=== PATIENT | male | born 1940 | race Caucasian/White ===

== ENCOUNTER 2017-08-08 03:14 | Inpatient (IN) | payer BC ==
[~2017-08-08] VITALS: Ht 185.4 cm; Wt 100.5 kg
--- NOTE | ~2017-08-08 | CN ---
Consultation Report [address] [place]. [address] NAME: KEISHA HURLEY : 44 STATUS : ADM Warner PAT#: [id number] AGE: 77 ADM/REG DATE : 08/08/17 MR#: [id number] REPORT SERV DATE: 08/09/17 DICTATED BY: PRESTON SIEGEL DATE: 08/09/17 REPORT STATUS : Draft TRANSCRIBED BY: MODL DATE: 08/09/17 GI CONSULTATION. DATE OF CONSULTATION: 08/08/2017 REASON FOR CONSULTATION: Abdominal pain, nausea, and vomiting. HISTORY OF PRESENT ILLNESS: Mr. Hurley is a 77-year-old white male with a history of coronary artery disease, hypertension, dyslipidemia, and diabetes, also had a history of peptic ulcer disease in the past, many years ago is seen by Dr. Lilly, who has since retired. He presents to [facility] with worsening nausea, vomiting, abdominal pain, which has been ongoing over the past three months, but particularly worse since over the weekend when he was admitted. He has had emesis of food. No coffee-ground or hematemesis. No melena. No bright red blood per rectum. His liver enzymes and lipase have been normal. White count mildly elevated at 11.8. CT scan showed no bowel wall thickening or stranding. No diverticulitis or appendicitis. PAST MEDICAL HISTORY: 1. Coronary artery disease status post PCI x2. 2. Hypertension. 3. Dyslipidemia. 4. Diabetes. 5. Peptic ulcer disease. PAST SURGICAL HISTORY: 1. Stent placement in coronary arteries. 2. Hemorrhoidectomy. 3. Hernia surgery. FAMILY HISTORY: Cancer. MEDICATIONS: Reviewed. ALLERGIES: REVIEWED. SOCIAL HISTORY: Former smoker, quit over 20 years ago. No alcohol or drug use. PHYSICAL EXAMINATION: VITAL SIGNS: The patient is afebrile. Vital signs are stable. GENERAL: The patient is awake, alert, and oriented x3. Well developed, well nourished, in no acute distress. HEENT: Atraumatic and normocephalic. Anicteric. Mucous membranes are moist. CARDIAC: S1-S2. CHEST: Clear to auscultation bilaterally. Consultation Report [address] [place]. [address] NAME: KEISHA HURLEY : 44 STATUS : ADM Warner PAT#: [id number] AGE: 77 ADM/REG DATE : 08/08/17 MR#: [id number] REPORT SERV DATE: 08/09/17 DICTATED BY: PRESTON SIEGEL DATE: 08/09/17 REPORT STATUS : Draft TRANSCRIBED BY: COLT DATE: 08/09/17 ABDOMEN: Soft. Mild tenderness to palpation diffusely mostly in the epigastrium. No rebound or guarding. Bowel sounds normoactive. LABORATORY DATA: WBC 11.8, hemoglobin 13.5, hematocrit 39.2, and platelets 162. INR is 1.1. Sodium 144, potassium 3.7, chloride 109, bicarb 25, BUN 15, creatinine 1.32, and glucose 156. The patient had a colonoscopy in [address] Pascual who found two tubular adenomas; has not had any recent colonoscopy since then. Liver enzymes, lipase normal. Mesenteric Doppler ordered, but pending at this time. IMPRESSION AND PLAN: Nausea, vomiting, and abdominal pain, not necessarily postprandial in nature or colicky by history, has been fairly persistent and has hampered his p.o. intake, although no significant weight loss. We will follow up on this mesenteric Doppler and if negative or normal we will order upper GI small bowel series, pending that we will plan for EGD colonoscopy for further evaluation. The patient will need a colonoscopy given his history of tubular adenomas over 10 years ago. I reviewed this with the patient and his , and they are agreeable with the plan. Questions and concerns were addressed. ADRAIN/COLT Preston Siegel MD / [id number] CC: Reece Gonzalez M.D.
--- NOTE | ~2017-08-08 | DS ---
Discharge Summary [facility] [address] [facility] [place]. [address] NAME: KEISHA MANSFIELD : 44 STATUS : DIS Warner PAT#: [id number] AGE: 77 ADM/REG DATE : 08/08/17 MR#: [id number] REPORT SERV DATE: 08/15/17 DICTATED BY: AMY HALL DATE: 08/11/17 REPORT STATUS : Draft TRANSCRIBED BY: MODL DATE: 08/11/17 ADMISSION DATE: 08/08/2017 DISCHARGE DATE: 08/11/2017 REASON FOR ADMISSION: This is a 77-year-old male who came in with a chief complaint of abdominal pain, nausea, and vomiting with a history of peptic ulcer disease. DISCHARGE DIAGNOSES: 1. Acute gastritis. 2. Abdominal pain with nausea and vomiting, resolved, possibly due to gastritis. 3. Hypertension. 4. History of peptic ulcer disease. 5. Diabetes type 2. HOSPITAL COURSE: Abdominal pain with nausea and vomiting. The patient admitted by Hospitalist Service and on admission, the patient had a CT of abdomen and pelvis with IV contrast. 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 Also, the patient had an acute abdominal series x-ray done which had shown no significant bowel gas abnormalities, no evidence of free air, intraperitoneal air. The patient also end up having a mesenteric duplex ultrasound which showed no evidence of mesenteric ischemia and a GI small bowel follow-through which had shown small sliding hernia. No ulceration, normal small-bowel follow-through. The patient was then scheduled for EGD and colonoscopy which was performed yesterday on the by Dr. Siegel. EGD would show nonobstructing and mild Schatzki ring, dilated hiatal hernia, gastritis which was biopsied, and a normal duodenal bulb and second part of duodenum. Recommendations for no further aspirin, ibuprofen, or other nonsteroidal anti-inflammatory drugs and to continue anti-reflux regimen using Protonix 40 mg p.o. daily. The patient also had a colonoscopy. Preparation of colon was poor. Perineal skin tags found on exam and stool in the entire examined colon. So, the patient would need to return for a repeat colonoscopy outpatient and she wished to follow up with him in four weeks. In the meantime, the patient's abdominal pain, nausea, and vomiting resolved. He is tolerating normal diet and has been cleared for discharge. DISCHARGE CONDITION: Stable. DISCHARGE MEDICATIONS: 1. Nexium 40 mg p.o. daily. 2. Flomax 0.4 mg p.o. at bedtime. 3. Efudex cream. 4. Metformin 500 mg p.o. b.i.d. 5. Lipitor 10 mg p.o. at bedtime. 6. Lisinopril 40 mg p.o. daily. 7. Toprol 50 mg p.o. daily. 8. Multivitamin one tablet daily. Discharge Summary [address] [address] NAME: KEISHA MANSFIELD : 44 STATUS : DIS Warner PAT#: [id number] AGE: 77 ADM/REG DATE : 08/08/17 MR#: [id number] REPORT SERV DATE: 08/15/17 DICTATED BY: AMY HALL DATE: 08/11/17 REPORT STATUS : Draft TRANSCRIBED BY: COLT DATE: 08/11/17 9. Folic acid 400 mcg p.o. daily. 10.FiberCon one tablet daily. 11.Metamucil powder daily. 12.Visine tears. 13.Nitroglycerin sublingual 0.4 mg p.r.n. 14.Bentyl 20 mg p.o. daily p.r.n. 15.Zofran 4 mg p.o. q.6 hours p.r.n. 16.Nexium. DISCHARGE PLAN: The patient is discharged home. Follow up with Dr. Siegel in four weeks for repeat colonoscopy. Follow up with his primary care, Amando Henry, in one to two weeks. TDR/NAVEEDL Jaden Bhagat APN Amy Hall M.D. / [id number] CC: Reece Diez M.D. Camille Sommer, MD
--- NOTE | ~2017-08-08 | EGD ---
EGD REPORT [facility] [address] [place] [address] NAME: KEISHA HURLEY : 44 STATUS : ADM Warner PAT#: [id number] AGE: 77 ADM/REG DATE : 08/08/17 MR#: [id number] REPORT SERV DATE: 08/10/17 DICTATED BY: PRESTON POSADAS DATE: 08/10/17 REPORT STATUS : Draft [facility]ANSCRIBED [facility]: [facility] DATE: 08/10/17 Endoscopy Center Patient Name: Keisha Hurley Date of : 1940 Attending MD: PRESTON POSADAS, Procedure Date No Time: 08/10/2017 Procedure: Colonoscopy Indications: Abdominal pain, Incidental change in bowel habits noted Referring MD: VALENTINA GOVEA MD Medicines: Propofol per Anesthesia Complications: No immediate complications. Estimated blood loss: None. Procedure: Pre-Anesthesia Assessment: - Prior to the procedure, a History and Physical was performed, and patient medications and allergies were reviewed. The patient's tolerance of previous anesthesia was also reviewed. The risks and benefits of the procedure and the sedation options and risks were discussed with the patient. All questions were answered, and informed consent was obtained. Prior Anticoagulants: The patient has taken no previous anticoagulant or antiplatelet agents. ASA Grade Assessment: III - A patient with severe systemic disease. After reviewing the risks and benefits, the patient was deemed in satisfactory condition to undergo the procedure. After I obtained informed consent, the scope was passed under direct vision. Throughout the procedure, the patient's blood pressure, pulse, and oxygen saturations were monitored continuously. The PCF [id number] was introduced through the anus and advanced to the cecum, identified by appendiceal orifice and ileocecal valve. The colonoscopy was performed with ease. The patient tolerated the procedure well. The quality of the bowel preparation was poor. The ileocecal valve and rectum were photographed. Findings: The perianal exam was abnormal. Findings include skin tags. A large amount of semi-liquid semi-solid stool was found in the entire colon, precluding visualization. The exam was otherwise without abnormality on direct and retroflexion views. Impression: - Preparation of the colon was poor. - Perianal skin tags found on perianal exam. - Stool in the entire examined colon. EGD REPORT [address] [place]. [address] NAME: KEISHA HURLEY : 44 STATUS : ADM Warner PAT#: [id number] AGE: 77 ADM/REG DATE : 08/08/17 MR#: [id number] REPORT SERV DATE: 08/10/17 DICTATED BY: PRESTON POSADAS DATE: 08/10/17 REPORT STATUS : Draft TRANSCRIBED BY: [employer] DATE: 08/10/17 - The examination was otherwise normal on direct and retroflexion views. Recommendation: - [facility]. - Continue present medications. - Soft diet. - Repeat colonoscopy at appointment to be scheduled because the bowel preparation was suboptimal. - Return to GI clinic in 4 weeks. Procedure Code(s): --- Professional --- 67630, Colonoscopy, flexible, proximal to splenic flexure; diagnostic, with or without collection of specimen(s) by brushing or washing, with or without colon decompression (separate procedure) Diagnosis Code(s): --- Professional --- K64.4, Residual hemorrhoidal skin tags R10.9, Unspecified abdominal pain CPT copyright 2013 [employer]. All rights reserved. The codes documented in this report are preliminary and upon broth setter review may be revised to meet current compliance requirements. PRESTON POSADAS, 08/10/2017 6:33 PM This report has been signed electronically. Number of Addenda: 0 Note Initiated On: 08/10/2017 5:23 PM Scope Withdrawal Time 0 hours 7 minutes 53 seconds [id number] [id number]
--- NOTE | ~2017-08-08 | EGD ---
EGD REPORT [facility] [address] [place] [address] NAME: KEISHA HURLEY : 44 STATUS : ADM Warner PAT#: [id number] AGE: 77 ADM/REG DATE : 08/08/17 MR#: [id number] REPORT SERV DATE: 08/10/17 DICTATED BY: PRESTON POSADAS DATE: 08/10/17 REPORT STATUS : Draft TRANSCRIBED BY: [employer] DATE: 08/10/17 Endoscopy Center Patient Name: Keisha Hurley Date of : 1940 Attending MD: PRESTON POSADAS, Procedure Date No Time: 08/10/2017 Procedure: Upper GI endoscopy Indications: Abdominal pain, Dysphagia, Nausea with vomiting Referring MD: VALENTINA GOVEA MD Medicines: Propofol per Anesthesia Complications: No immediate complications. Estimated blood loss: None. Procedure: Pre-Anesthesia Assessment: - ASA Grade Assessment: III - A patient with severe systemic disease. After obtaining informed consent, the endoscope was passed under direct vision. Throughout the procedure, the patient's blood pressure, pulse, and oxygen saturations were monitored continuously. The GIF H190 [id number] was introduced through the mouth, and advanced to the second part of duodenum. The upper GI endoscopy was accomplished with ease. The patient tolerated the procedure well. Findings: A non-obstructing and mild Schatzki ring (acquired) was found at the gastroesophageal junction. A guidewire was placed and the scope was withdrawn. Dilation was performed with a Savary dilator with mild resistance at 60 Fr. Estimated blood loss: none. A small hiatus hernia was present. The Z-line was found 41 cm from the incisors. Diffuse mild inflammation characterized by congestion (edema) and erythema was found in the gastric antrum. Biopsies were taken with a cold forceps for histology. Estimated blood loss: none. The duodenal bulb and 2nd part of the duodenum were normal. Impression: - Non-obstructing and mild Schatzki ring. Dilated. - Hiatus hernia. - Z-line 41 cm from the incisors. - Gastritis. Biopsied. - Normal duodenal bulb and 2nd part of the duodenum. Recommendation: - Return patient to [facility]. - Follow an antireflux regimen. - No aspirin, ibuprofen, naproxen, or other non-steroidal anti-inflammatory drugs. EGD REPORT [address] [place]. [address] NAME: KEISHA HURLEY : 44 STATUS : ADM Warner PAT#: [id number] AGE: 77 ADM/REG DATE : 08/08/17 MR#: [id number] REPORT SERV DATE: 08/10/17 DICTATED BY: PRESTON POSADAS DATE: 08/10/17 REPORT STATUS : Draft TRANSCRIBED BY: [employer] DATE: 08/10/17 - Use Protonix (pantoprazole) 40 mg PO daily. - Soft diet today and advance as tolerated. - Await pathology results. - Return to GI clinic in 4 weeks. Procedure Code(s): --- Professional --- 71567, Esophagogastroduodenoscopy, flexible, transoral; with insertion of guide wire followed by passage of dilator(s) through esophagus over guide wire 48517, Esophagogastroduodenoscopy, flexible, transoral; with biopsy, single or multiple Diagnosis Code(s): --- Professional --- K22.2, Esophageal obstruction K44.9, Diaphragmatic hernia without obstruction or gangrene K29.70, Gastritis, unspecified, without bleeding R10.9, Unspecified abdominal pain R13.10, Dysphagia, unspecified R11.2, Nausea with vomiting, unspecified CPT copyright 2013 [employer]. All rights reserved. The codes documented in this report are preliminary and upon data coder operator review may be revised to meet current compliance requirements. PRESTON POSADAS, 08/10/2017 6:13 PM This report has been signed electronically. Number of Addenda: 0 Note Initiated On: 08/10/2017 5:22 PM Scope Withdrawal Time 0 hours 0 minutes 0 seconds [id number] [id number]
--- NOTE | ~2017-08-08 | HP ---
History And Physical [place] [address] [facility] [place]. [address] NAME: KEISHA HURLEY : 44 STATUS : ADM Warner PAT#: [id number] AGE: 77 ADM/REG DATE : 08/08/17 MR#: [id number] REPORT SERV DATE: 08/08/17 DICTATED BY: JAIDA IBARRA DATE: 08/08/17 REPORT STATUS : Draft TRANSCRIBED BY: MODL DATE: 08/08/17 DATE OF ADMISSION: 08/08/2017 POINT OF ENTRY: [facility]. PRIMARY INVESTMENT SALES ASSISTANT: Micheal Marsh M.D., [facility], [facility]. PRIMARY SHALE PLANER OPERATOR HELPER: Formerly Dr. Fajardo. CHIEF COMPLAINT: Abdominal pain, nausea, and vomiting. HISTORY OF PRESENT ILLNESS: Mr. Hurley is a 77-year-old gentleman with a history of coronary artery disease with prior PCI, hypertension, hyperlipidemia, utd-vauiubp-ecjkdpopc diabetes mellitus type 2, and history of gastroesophageal reflux disease and peptic ulcer disease, who presents to the emergency department today with reports of a few-day history of severe epigastric and periumbilical abdominal pain with associated nausea and vomiting. The patient's states for the past few weeks to few months, he has had intermittent troubles with abdominal pain. Initially, it was located more on the left lower quadrant, it was made worse by food. The patient was empirically treated for possible H pylori as well as diverticulitis with a two-week course of antibiotics of clarithromycin and Flagyl, which he reportedly completed about two or three weeks ago. The patient states that the antibiotic regimen did improve his abdominal discomfort somewhat, but the pain in the left lower quadrant never completely went away. The patient presents to the emergency department today with a three to four day history of severe epigastric and periumbilical abdominal pain described as a crampy and bloating in nature with associated nausea and vomiting. The patient's last bowel was about Tuesday morning, but he has continued to pass flatus. The patient actually was seen in the emergency department earlier on Tuesday for labs that were unremarkable as was a CT scan of the abdomen and pelvis. He was feeling better after some Zofran, fluids, and morphine, and discharged to home. Upon arrival to home, he ate a small amount of food, fell asleep to take a nap, and then awoke with recurrent severe abdominal pain again with associated nausea and vomiting prompting presentation back to the emergency department. The patient denies any significant alcohol intake, use of NSAIDs or blood thinners, but is on a baby aspirin. He does have a remote history of significant GI bleed secondary to duodenal ulcer in about 2007. He does take a PPI on a daily basis, but has not followed up with a GI physician quite some time. He states his last known EGD was probably during the GI bleed history. Last colonoscopy was 13 or 14 years ago. Initial evaluation in the emergency department during this presentation of his labs were white count 11,800, lactic acid is normal, lipase also normal. KUB was unremarkable as mentioned previously. CT of the abdomen and pelvis was obtained earlier in the day, which History And Physical [address] [address] NAME: KEISHA HURLEY : 44 STATUS : ADM Warner PAT#: [id number] AGE: 77 ADM/REG DATE : 08/08/17 MR#: [id number] REPORT SERV DATE: 08/08/17 DICTATED BY: AJIDA IBARRA DATE: 08/08/17 REPORT STATUS : Draft TRANSCRIBED BY: COLT DATE: 08/08/17 was unremarkable for source of his abdominal pain, did show diverticulosis without diverticulitis. It did also show moderate atherosclerotic burden of his aortoiliac system. The patient was subsequently admitted to the Hospitalist Service for further evaluation and management. The patient denies any recent fevers, night sweats, chills, chest pain, palpitations, shortness of breath, cough, sputum production, diarrhea, constipation, dysuria, lower extremity edema, melena, hematochezia, hemoptysis, or hematemesis. REVIEW OF SYSTEMS: Comprehensive review of systems is otherwise negative unless listed in history of present illness.. PREVIOUS MEDICAL HISTORY: 1. Coronary artery disease with prior PCI. 2. Hypertension. 3. Hyperlipidemia. 4. History of peptic ulcer disease. 5. Nephrolithiasis. 6. History of GI bleed. 7. BPH. 8. Osteoarthritis. 9. Vfm-rkrtwjr-uteddiiia diabetes mellitus type 2. 10.Diverticulosis with history of diverticulitis. 11.History of traumatic subarachnoid and subdural hematoma in 2010. 12.Suspicion for H pylori infection. PAST SURGICAL HISTORY: 1. Hernia repair surgery. 2. Hemorrhoidectomy. ALLERGIES: NO KNOWN DRUG ALLERGIES. HOME MEDICATIONS: Pending at time of dictation. SOCIAL HISTORY: Denies any tobacco, alcohol, or illicits. FAMILY MEDICAL HISTORY: Mother at age 102 of old age. Father at age 90 of old age. Siblings with Parkinson disease, stroke, and colon cancer. LABS AND IMAGIN. White count 11.8, hemoglobin 13.5, and hematocrit 39.2, platelet count 162. 2. Lactic acid is 1.3. 3. Lipase is 125. 4. Troponin is less than 0.02. 5. Sodium is 144, potassium 3.7, chloride 101, carbon dioxide 25, BUN 15, creatinine 1.32, glucose is 136, calcium is 9.0, protein 7.4, albumin 3.8, bili is 0.8, ALT is 31, AST History And Physical [address] [address] NAME: KEISHA HURLEY : 44 STATUS : ADM Warner PAT#: [id number] AGE: 77 ADM/REG DATE : 08/08/17 MR#: [id number] REPORT SERV DATE: 08/08/17 DICTATED BY: JAIDA IBARRA DATE: 08/08/17 REPORT STATUS : Draft TRANSCRIBED BY: COLT DATE: 08/08/17 19, and alkaline phosphatase is 80. 6. KUB per my review shows normal gas pattern. 7. EKG per my review shows atrial fibrillation versus normal sinus rhythm with frequent PACs, but no evidence of any acute ischemia or infarction. PHYSICAL EXAMINATION: VITAL SIGNS: Temperature is 98.3 Fahrenheit, pulse is 111, respirations 16, saturating 97% on room air, and blood pressure is 216/103. On recheck, pulse is now 88 with blood pressure of 165/84. GENERAL: The patient is awake and alert, in no acute distress, resting comfortably in bed. He is a well-developed and well-nourished male. HEENT: Atraumatic and normocephalic. Moist mucous membranes. Pupils are equal, round, and reactive to light and accommodation. Extraocular eye movements are intact. No scleral icterus. NECK: No jugular venous distention. No carotid bruits. CARDIAC: Regular rate and rhythm with frequent ectopic beats. No murmurs, rubs, or gallops. LUNGS: Clear to auscultation bilaterally. No wheezes, rhonchi, or crackles. ABDOMEN: Soft, somewhat mildly tender to palpation over the epigastric and periumbilical region. Hypoactive bowel sounds throughout, but no rebound, guarding, or rigidity. EXTREMITIES: Warm, perfused. No cyanosis, clubbing, or edema. SKIN: Warm and dry. PSYCHIATRIC: Affect appropriate. NEUROLOGIC: Alert and oriented x3. Cranial nerves 2 through 12 are grossly intact. Speech is normal. Gait is not assessed. ASSESSMENT: Mr. Hurley is a 77-year-old gentleman, who presents with persistent severe abdominal pain with associated nausea and vomiting. PROBLEM LIST: 1. Severe abdominal pain. 2. Nausea and vomiting. 3. Leukocytosis. 4. Hypertension. 5. History of peptic ulcer disease and GI bleed. 6. History of diverticulosis. 7. Presumptive diagnosis of H pylori, status post treatment. 8. History of coronary artery disease. 9. Atrial fibrillation versus normal sinus rhythm with PACs. PLAN: 1. Severe abdominal pain with associated nausea and vomiting. The patient thus far has had negative workup including occult stool, lactic acid, lipase, CMP, as well as CT of the abdomen and pelvis with IV contrast. Given pain worsening with eating as well as severity of the pain, I am concerned for possible gastritis versus peptic ulcer disease or possible mesenteric ischemia. As such, we will place the patient on PPI b.i.d., check a mesenteric arterial Doppler as well as consult GI for assistance as the patient History And Physical [address] [address] NAME: KEISHA HURLEY : 44 STATUS : ADM Warner PAT#: [id number] AGE: 77 ADM/REG DATE : 08/08/17 MR#: [id number] REPORT SERV DATE: 08/08/17 DICTATED BY: JAIDA IBARRA DATE: 08/08/17 REPORT STATUS : Draft TRANSCRIBED BY: [facility] DATE: 08/08/17 may need endoscopic evaluation. 2. History of H pylori, unclear as to whether not he was tested for this prior to treatment. Try to obtain records from Dr. Henry's office. Check a stool H pylori antigen. 3. History of diverticulosis. No evidence of any diverticulitis on CT scan at this time. We will continue to monitor. 4. Leukocytosis, likely stress response, but we will check a chest x-ray as well as a urinalysis. 5. Hypertension, the patient is on antihypertensives. I suspect his elevated blood pressures here in the ER were likely due to pain. We will continue the patient's home medications once confirmed and add on hydralazine IV p.r.n. 6. Atrial fibrillation versus normal sinus with PACs. EKG here is concerning for atrial fibrillation, however, it is of somewhat poor quality. We will place the patient on telemetry monitoring and repeat EKG upon arrival on the floor. It is unclear as to whether or not the patient had a history of atrial fibrillation in the past. 7. Pfw-bwxzxbj-sgiuswdff diabetes mellitus type 2, holding the patient's metformin, place the patient on level 2 sliding scale, and check hemoglobin A1c. 8. History of coronary artery disease. Troponin is negative. He denies any chest pain. EKG is nonischemic. 9. DVT prophylaxis, Lovenox subcu. CODE STATUS: The patient wished to be full code. JCB/MODL Jaida Ibarra MD / [id number] CC: Naresh Torrez M.D. Reece Mcintyre III, M.D., [facility]
[2017-08-08 04:40] LABS: BASOPHILS 0.1 %; BASOPHILS ABSOLUTE 0.01 10/3/uL (0.0-0.16); EOSINOPHILS 0.2 %; EOSINOPHILS ABSOLUTE 0.02 10/3/uL (0.0-0.53); HEMATOCRIT 39.2 % (40.0-51.0); HEMOGLOBIN 13.5 g/dL (13.6-17.8); IMMATURE GRANULOCYTES 0.1 %; IMMATURE GRANULOCYTES ABSOLUTE 0.01 10/3/uL (0.0-0.11); LYMPHOCYTES 7.3 %; LYMPHOCYTES ABSOLUTE 0.86 10/3/uL (0.67-4.30); MEAN CORPUS HGB CONC 34.4 g/dL (32.0-36.0); MEAN CORPUSCULAR HEMOGLOB 30.2 pg (26.0-34.0); MEAN CORPUSCULAR VOLUME 87.7 fL (80-100); MONOCYTES 8.1 %; MONOCYTES ABSOLUTE 0.95 10/3/uL (0.21-1.20); NEUTROPHILS 84.2 %; PLATELET COUNT 162 10/3/uL (150-400); RBC DISTRIBUTION WIDTH 13.7 % (12.0-16.0); RED CELL COUNT 4.47 10/6/uL (4.7-6.1); WHITE BLOOD CELLS 11.8 10/3/uL (4.5-10.5)
[2017-08-08 04:42] LABS: MANUAL DIFF NO %
[2017-08-08 04:57] LABS: LACTATE 1.3 MMOL/L (0.3-2.4)
[2017-08-08 04:59] LABS: A/G RATIO 1.1 (0.7-1.9); ALBUMIN 3.8 G/DL (3.5-5.0); ALKALINE PHOSPHATASE 80 U/L (45-117); BUN (BLOOD UREA NITROGEN) 15 MG/DL (6-23); CHLORIDE, SERUM 109 MMOL/L (96-112); CO2 (CARBON DIOXIDE) 25 MMOL/L (24-34); CREATININE 1.32 MG/DL (0.70-1.30); GFR AFRICAN AMERICAN 61 ML/MIN (>=60); GFR NON AFRICAN AMERICAN 52 ML/MIN (>=60); GLOBULIN 3.6 G/DL (2.5-4.1); GLUCOSE, SERUM 156 MG/DL (60-99); POTASSIUM, SERUM 3.7 MMOL/L (3.5-5.3); SGOT(AST) 19 U/L (5-40); SGPT(ALT) 31 U/L (5-65); SODIUM, SERUM 144 MMOL/L (135-148); TOTAL BILIRUBIN 0.8 MG/DL (0-1.2); TOTAL PROTEIN 7.4 G/DL (6.0-8.5); TROPONIN I <0.02 NG/ML (<0.05)
[2017-08-08] MEDS ORDERED: FLOMAX4 PO (07:34)
[2017-08-08] MEDS ORDERED: CIP5 PO (07:34)
[2017-08-08] MEDS ORDERED: NEXIUM40 PO (07:34)
[2017-08-08] MEDS ORDERED: EFUDEX CREAM 5%40 GM TOP (07:36)
[2017-08-08] MEDS ORDERED: GLUMETZA500 MG PO (07:37)
[2017-08-08] MEDS ORDERED: LIPITOR10 PO (07:38)
[2017-08-08] MEDS ORDERED: LISINOPRIL40 MG PO (07:38)
[2017-08-08] MEDS ORDERED: MULTIVIT/MIN PO (07:39)
[2017-08-08] MEDS ORDERED: TOPXL50 PO (07:39)
[2017-08-08] MEDS ORDERED: FOLIC ACID400 MC1 PO (07:41)
[2017-08-08] MEDS ORDERED: FIBERCON PO (07:41)
[2017-08-08] MEDS ORDERED: HALF81 PO (07:42)
[2017-08-08] MEDS ORDERED: CHLORPHEN4 MG PO (07:42)
[2017-08-08] MEDS ORDERED: ACET500CAP PO (07:43)
[2017-08-08] MEDS ORDERED: VISINE TEARS15 ML OPH (07:44)
[2017-08-08] MEDS ORDERED: METAMUCIL CAN7 OZ PO (07:44)
[2017-08-08] MEDS ORDERED: BENTYL20 PO (07:46)
[2017-08-08] MEDS ORDERED: NITROSTAT0.4 MG SL (07:46)
[2017-08-08] MEDS ORDERED: ZOFRAN4 PO (07:47)
[2017-08-08 14:27] LABS: ASCORBIC ACID (UR NOT ORDER) 40 (NEG); BILIRUBIN, URINE NEGATIVE (NEG); KETONE, URINE TRACE MG/DL (NEG); LEUKOCYTE ESTERASE(NOT OR NEG (NEG); WBC (NOT ORDERED) (RFLEX) 2 (0-5)
[2017-08-09 06:18] LABS: BASOPHILS 0.3 %; BASOPHILS ABSOLUTE 0.02 10/3/uL (0.0-0.16); EOSINOPHILS 3.8 %; EOSINOPHILS ABSOLUTE 0.25 10/3/uL (0.0-0.53); HEMATOCRIT 36.3 % (40.0-51.0); IMMATURE GRANULOCYTES 0.2 %; IMMATURE GRANULOCYTES ABSOLUTE 0.01 10/3/uL (0.0-0.11); LYMPHOCYTES 20.6 %; LYMPHOCYTES ABSOLUTE 1.35 10/3/uL (0.67-4.30); MEAN CORPUS HGB CONC 33.1 g/dL (32.0-36.0); MEAN CORPUSCULAR HEMOGLOB 29.9 pg (26.0-34.0); MONOCYTES 10.6 %; MONOCYTES ABSOLUTE 0.69 10/3/uL (0.21-1.20); NEUTROPHILS 64.5 %; NEUTROPHILS ABSOLUTE 4.22 10/3/uL (2.02-8.40); PLATELET COUNT 151 10/3/uL (150-400); RBC DISTRIBUTION WIDTH 13.6 % (12.0-16.0); RED CELL COUNT 4.01 10/6/uL (4.7-6.1)
[2017-08-09 06:20] LABS: MANUAL DIFF NO %; MEAN CORPUSCULAR VOLUME 90.5 fL (80-100); WHITE BLOOD CELLS 6.5 10/3/uL (4.5-10.5)
[2017-08-09 06:30] LABS: BUN (BLOOD UREA NITROGEN) 12 MG/DL (6-23); CALCIUM, SERUM 8.8 MG/DL (8.5-10.4); CHLORIDE, SERUM 109 MMOL/L (96-112); CO2 (CARBON DIOXIDE) 26 MMOL/L (24-34); CREATININE 1.16 MG/DL (0.70-1.30); GFR AFRICAN AMERICAN 71 ML/MIN (>=60); GFR NON AFRICAN AMERICAN 61 ML/MIN (>=60); GLUCOSE, SERUM 96 MG/DL (60-99); POTASSIUM, SERUM 3.9 MMOL/L (3.5-5.3); SODIUM, SERUM 143 MMOL/L (135-148)
[2017-08-10 05:11] LABS: BASOPHILS 0.2 %; BASOPHILS ABSOLUTE 0.01 10/3/uL (0.0-0.16); EOSINOPHILS 3.2 %; EOSINOPHILS ABSOLUTE 0.15 10/3/uL (0.0-0.53); IMMATURE GRANULOCYTES 0.2 %; IMMATURE GRANULOCYTES ABSOLUTE 0.01 10/3/uL (0.0-0.11); LYMPHOCYTES 22.4 %; LYMPHOCYTES ABSOLUTE 1.05 10/3/uL (0.67-4.30); MEAN CORPUS HGB CONC 34.2 g/dL (32.0-36.0); MONOCYTES 10.7 %; NEUTROPHILS 63.3 %; NEUTROPHILS ABSOLUTE 2.96 10/3/uL (2.02-8.40); PLATELET COUNT 151 10/3/uL (150-400); RBC DISTRIBUTION WIDTH 13.2 % (12.0-16.0); RED CELL COUNT 3.67 10/6/uL (4.7-6.1); WHITE BLOOD CELLS 4.7 10/3/uL (4.5-10.5)
[2017-08-10 05:12] LABS: HEMATOCRIT 32.2 % (40.0-51.0); MANUAL DIFF NO %; MEAN CORPUSCULAR VOLUME 87.7 fL (80-100)
[2017-08-10 05:16] LABS: INTERNATIONAL NORMAL RATI 1.2 UNITS (-); PARTIAL THROMBO TIME 37.3 SEC (22.5-37.2); PROTIME (NOT ORD) 14.8 SEC (12.0-14.5)
== END 2017-08-11 13:05 | disposition home or self-care (01) | DRG 392 ==
LOC: ER 03:14 → 7NO 06:42
PROVIDERS: Hospitalist; Internal Medicine; Internal Medicine Gastroenterology; Nurse Practitioner Acute Care
PROC: 0D748ZZ Dilation of Esophagogastric Junction, Via Natural or Artificial Opening Endoscopic (ICD-10-PCS; principal; 2017-08-10 17:41)
PROC: 0DB68ZX Excision of Stomach, Via Natural or Artificial Opening Endoscopic, Diagnostic (ICD-10-PCS; 2017-08-10 17:41)
PROC: 0DJD8ZZ Inspection of Lower Intestinal Tract, Via Natural or Artificial Opening Endoscopic (ICD-10-PCS; 2017-08-10 17:41)
DX: K29.00 Acute gastritis without bleeding (principal); E11.9 Type 2 diabetes mellitus without complications; K22.2 Esophageal obstruction; I25.10 Atherosclerotic heart disease of native coronary artery without angina pectoris; Z95.5 Presence of coronary angioplasty implant and graft; I10 Essential (primary) hypertension; E78.5 Hyperlipidemia, unspecified; K21.9 Gastro-esophageal reflux disease without esophagitis; K57.30 Diverticulosis of large intestine without perforation or abscess without bleeding; I70.0 Atherosclerosis of aorta; I70.203 Unspecified atherosclerosis of native arteries of extremities, bilateral legs; N40.0 Benign prostatic hyperplasia without lower urinary tract symptoms; M19.90 Unspecified osteoarthritis, unspecified site; I49.1 Atrial premature depolarization; K64.4 Residual hemorrhoidal skin tags; K44.9 Diaphragmatic hernia without obstruction or gangrene; Z79.82 Long term (current) use of aspirin; Z87.11 Personal history of peptic ulcer disease
CPT/HCPCS: 74022; 74249; 80048; 80053; 81001; 82962; 83036; 83605; 83690; 84484; 85025; 85610; 85730; 87338; 88305; 93005; 93975; 96374; 96375; 99285; A9270-GY; C9113; J2405; J3010